=== PATIENT | male | born 1975 | race Caucasian/White ===

== ENCOUNTER 2020-01-31 19:48 | Emergency (ER) | payer SELFPAY ==
[2020-01-31 19:57] VITALS: BP 157/81; PULSE 101; RESP 18; TEMP 37.1; O2SAT 98; BMI 31.3
--- NOTE | 2020-01-31 19:57 | XR_ITS ---
PROCEDURE: XR KNEE LT 3V CLINICAL INDICATION: PAIN AND SWELLING COMPARISON: No exams were available for comparison FINDINGS: No fracture or dislocation. No lytic or blastic change. There is normal mineralization. Mild osteoarthritic changes are present at the medial compartment and patellofemoral joint. There is a large knee joint effusion in the suprapatellar region. Other findings:None. IMPRESSION: Osteoarthritis with large knee joint effusion Dictated by: Harish De MD 01/31/2020 23:27 Harish De MD in [place] 01/31/2020 23:27
[2020-01-31 20:00] VITALS: BP 157/81; PULSE 101; RESP 18; TEMP 37.1; O2SAT 98; BMI 31.4
--- NOTE | 2020-01-31 20:04 | HMH.EDUTC ---
[facility] [place] Disposition Clinical Impression: Knee swelling Disposition: Home, Self-Care Condition on Discharge: Good Instructions: DI for Knee Effusion, DI for Knee Pain Additional Instructions: *weight bearing as tolerated *RICE, Rest the extremity, Ice 15-20 minutes 3-4 times daily, Compress- wear the kenan wrap as discussed as much as possible to help reduce swelling and pain, Elevate the extremity when at rest *Kenan wrap is for support and help control swelling, use it except in the shower. Be sure that is not to tight but not to loose either *Elevate when resting *Ibuprofen every 6-8 hours as needed for pain an inflammation. If need something more can take Tylenol in between doses of Ibuprofen to help Immediately follow up with your family doctor for new or worsening of symptoms, or no noticeable improvement over the next 3-5 days Referrals: PCP,Diann [Primary Care Provider] - As needed Miriam Estrada MD [Physician] - (Office will call on Monday with appointment date and time) Time of Disposition: 21:11 Medical Decision Making - Samuel Inquiry Pt receiving controlled substance: No Samuel was queried for this patient: No Vital Signs: 01/31/20 19:57 01/31/20 20:00 Temperature 98.7 F 98.7 F Temperature Source Oral Oral Pulse Rate [Right] 101 H 101 H Respiratory Rate 18 18 Blood Pressure [Right Arm] 157/81 H 157/81 H Blood Pressure Mean [Right Arm] 106 106 Blood Pressure Source [Right Arm] Automatic Cuff Automatic Cuff Blood Pressure Position [Right Arm] Sitting Sitting 02 Sat by Pulse Oximetry 98 98 Oxygen Delivery Method Room Air Room Air - Lab Data Lab Results 01/31/20 20:20: Uric Acid 2.5 L Orders (Tests/Meds): ED MEDICATIONS Discontinued Medications Generic Name Dose Route Start Last Admin Trade Name Freq PRN Reason Stop Dose Admin Ketorolac Tromethamine 30 mg 01/31/20 20:19 01/31/20 20:32 Toradol 60mg/2ml Vial IM 01/31/20 20:20 30 mg ONCE ONE Administration ORDERS Category Date Time Status XR knee LT 3V Stat Exams 01/31/20 19:57 Taken - Radiology Data #1 Image(s): Knee Image Reviewed: Yes I reviewed the patient's radiology image Preliminary Findings: No Fracture Seen Soft tissue swelling, - Physician Consults Physician Consulted: Schwindel Time: 20:50 Reason -: Orthopedic Eval/Care Comment/Response: Spoke with Dr Estrada, she viewed xray no acute fracture, advised to put him in knee immobilizer, crutches and her office will call him on Monday with appointment Medical Decision Narrative: Uric acid level low Discussed transfer to ED for further evaluation and lab testing and patient declined transfer States that he did not want to go to the ED that he will find a family doctor and follow up with them for further evaluation Recommended finding PCP yuni and have testing and re-evaluation of results to rule out other underlying causes [facility] [place] HPI - General Stated complaint: L knee swollen Time Seen by Provider: 01/31/20 20:04 Mode of Arrival: Wheelchair Source of Information: Patient Limitations: No Limitations Description of Symptoms (Recalled from Triage Doc. by RN): Pt states he woke up today and his left knee is swollen, denies injury to knee. - History of Present Illness Provider Complaint: Patient states that for the last week he has been having swelling in his left knee States that he had surgery on this knee about 4 yrs ago States that today it was doing better but still having some pain and swelling States that he hasnt done anything that he is aware of to hurt it and just got a ride to the hospital to get it checked States that he took 400mg of OTC Motrin about 3-4 hours ago - Related Data Allergies Allergy/AdvReac Type Severity Reaction Status Date / Time Penicillin Allergy Intermediate I-HIVES Uncoded 05/30/17 14:50 From [facility] Allergy Unknown Involuntary Uncoded 05/30/17 14:50 Twitching to Arms/Legs [facility] History -
[2020-01-31 20:42] LABS: Uric Acid 2.5 mg/dl (3.5-8.5)
[2020-01-31 21:20] VITALS: BP 157/81; PULSE 101; RESP 18; TEMP 37.1; O2SAT 98
== END 2020-01-31 21:21 | disposition home or self-care (01) ==
PROVIDERS: Emergency Provider Nurse Practitioner
DX: M25.562 Pain in left knee (principal); R60.0 Localized edema; Z88.0 Allergy status to penicillin; Z88.8 Allergy status to other drugs, medicaments and biological substances
CPT/HCPCS: 29505; G0463; 73562; 84550; 99203